=== PATIENT | female | born 1965 | race American Indian/Alaskan Native ===

== ENCOUNTER 2016-08-07 10:07 | Emergency (ER) | payer OTHER ==
[2016-08-07 11:21] VITALS: BMI 44.6
[2016-08-07 11:22] VITALS: PULSE 77; RESP 19
--- NOTE | 2016-08-07 11:36 | ED PDOC ---
HPI: SOB/CHF/COPD Time Seen by Provider: 08/07/16 11:16 Chief Complaint (Nursing): Shortness Of Breath Chief Complaint (Provider): Shortness Of Breath History Per: Patient History/Exam Limitations: no limitations Onset/Duration Of Symptoms: Days Current Symptoms Are (Timing): Still Present Initiating Event: Exposure To Mold Quality: Tightness Current Respiratory Medications: See Home Med List Severity: Mild Additional Complaint(s): Patient is a 50 year old female who presents to ED foe valuation of SOB with fever intermittent for a couple of weeks. Patient reports initially she returned home from vacation to find a leak in her ceiling that resulted in mold. States at that time she developed fever of 104 and SOB which resolved until yesterday. Patient states that she developed another leak a few days ago and the sick feeling returned. Denies chest pain, palpations or back pain. PMD: [facility] Past Medical History Reviewed: Historical Data, Nursing Documentation, Vital Signs Vital Signs: Last Vital Signs Temp 98.1 F 08/07/16 13:51 Pulse 77 08/07/16 11:21 Resp 19 08/07/16 13:51 BP 132/76 08/07/16 13:51 Pulse Ox 100 08/07/16 13:51 - Medical History PMH: Arthritis, Asthma, CAD, Diabetes, Deep Vein Thrombosis (left leg), HTN, Kidney Stones, Rheumatoid Arthritis - Surgical History Surgical History: Cholecystectomy, - Family History Family History: States: Unknown Family Hx - Living Arrangements Living Arrangements: With Family - Home Medications Home Medications: Ambulatory Orders Medication Instructions Recorded Benazepril HCl [Benazepril] 20 mg PO DAILY 02/25/15 Fluticasone Propionate [Flovent 0.22 mg IH Q4 02/25/15 Hfa] Gabapentin [Neurontin] 600 mg PO BID 02/25/15 diltiaZEM [Cardizem] 60 mg PO DAILY 02/25/15 Albuterol HFA [Ventolin HFA 90 2 puff IH Q4H #1 puff 02/26/15 mcg/actuation (8 g)] Ibuprofen [Motrin] 600 mg PO TID 7 Days 07/25/15 Tamsulosin [Flomax] 0.4 mg PO DAILY PRN #6 cap 07/25/15 - Allergies Allergies/Adverse Reactions: Allergies Allergy/AdvReac Type Severity Reaction Status Date / Time No Known Allergies Allergy Verified 02/25/15 20:10 Curb-65 Severity Score - CURB-65 Severity Score Confusion: No Bun >19mg/dl (>7mmol/L): No Respiratory Rate greater than/equal to 30: No Systolic BP <90 or Diastolic BP less than/equal 60mmHg: No Age >64: No Curb-65 Score: 0 Percentage 30-day mortality: 0.6% Wells Criteria for PE - Wells Criteria for Pulmonary Embolism Clinical Signs and Symptoms of DVT: No P.E is #1 Diagnosis, or Equally Likely: No Heart Rate >100: No Immobilization at least 3 days;Surgery previous 4 weeks: No Previous, objectively diagnosed PE or DVT: Yes Hemoptysis: No Malignancy w/treatment within 6 months, or palliative: No Total Score: 1.5 Review of Systems ROS Statement: Except As Marked, All Systems Reviewed And Found Negative Constitutional: Positive for: Fever, Chills ENT: Positive for: Throat Pain. Negative for: Ear Pain Cardiovascular: Negative for: Chest Pain Respiratory: Positive for: Cough, Shortness of Breath. Negative for: Sputum Musculoskeletal: Negative for: Neck Pain Skin: Negative for: Rash Physical Exam - Reviewed Nursing Documentation Reviewed: Yes Vital Signs Reviewed: Yes - Physical Exam Appears: Positive for: Well, Non-toxic, No Acute Distress (Spekaing full sentences) Skin: Positive for: Normal Color, Warm. Negative for: Rash Eye Exam: Positive for: Normal appearance ENT: Negative for: Nasal Congestion, Pharyngeal Erythema, Tonsillar Exudate Neck: Positive for: Normal, Painless ROM, Supple Cardiovascular/Chest: Positive for: Regular Rate, Rhythm. Negative for: Murmur Respiratory: Positive for: Normal Breath Sounds. Negative for: Wheezing, Respiratory Distress Extremity: Positive for: Normal ROM Neurologic/Psych: Positive for: Alert, Oriented - Laboratory Results Result Diagrams: 08/07/16 12:32 08/07/16 12:32 - ECG Interpretation Of ECG: NSR @ 67, nonspecific T wave abnormality. O2 Sat by Pulse Oximetry: 98 (RA) Pulse Ox Interpretation: Normal - Radiology X-Ray: Read By Radiologist X-Ray Interpretation: No Acute Disease Medical Decision Making Medical Decision Making: Time: 1125 Initial impression: SOB possible mold exposure Initial plan: -- EKG -- CMP -- Troponin -- CBC -- D-dimer -- PT/PTT -- Blood culture -- U/A -- CXR Scribe Attestation: Documented by Yarelis Cody acting as a scribe for Maddison Spencer MD. Scribmilena Attestation: All medical record entries made by the Scribe were at my direction and personally dictated by me. I have reviewed the chart and agree that the record accurately reflects my personal performance of the history, physical exam, medical decision making, and the department course for this patient. I have also personally directed, reviewed, and agree with the discharge instructions and disposition. Disposition - Clinical Impression Clinical Impression: Mold suspected exposure - Patient ED Disposition Is Patient to be Admitted: No - Disposition Disposition: Routine/Home Disposition Time: 13:44 Condition: STABLE Additional Instructions: FOLLOW-UP WITH YOUR PMD WITHIN 2 DAYS FOR REEVALUATION. Instructions: How Your Lungs Work (ED)
[2016-08-07 11:56] LABS: RBC URINE 204 /hpf (0-3); URINE BILIRUBIN NEGATIVE (NEGATIVE); URINE BLOOD LARGE (NEGATIVE); URINE COLOR YELLOW (YELLOW); URINE GLUCOSE (UA) NEG (Normal); URINE KETONE TRACE mg/dL (NEGATIVE); URINE LEUKOCYTE ESTERASE NEG Leu/uL (Negative); URINE PROTEIN 30 mg/dL (NEGATIVE); URINE UROBILINOGEN 0.2-1.0 mg/dL (0.2-1.0); WBC URINE 1 /hpf (0-5)
[2016-08-07 12:53] LABS: ALB/GLOB RATIO 1.2 (1.0-2.1); ALKALINE PHOSPHATASE 112 U/L (38-126); ALT/SGPT 22 U/L (9-52); AST/SGOT 23 U/L (14-36); BILIRUBIN,TOTAL 0.4 mg/dl (0.2-1.3); BLOOD UREA NITROGEN 16 mg/dl (7-17); CALCIUM 9.7 mg/dL (8.4-10.2); CARBON DIOXIDE 26 mmol/L (22-30); CHLORIDE 104 mmol/L (98-107); GFR AFRICAN-AMERICAN > 60; GLUCOSE,RANDOM 91 mg/dL (65-105); SODIUM 143 mmol/l (132-148); TOTAL PROTEIN 8.7 G/DL (6.3-8.2)
[2016-08-07 12:59] LABS: PARTIAL THROMBOPLASTIN TIME 25.2 SECONDS (23.3-32.5)
[2016-08-07 13:06] LABS: BASO % 0.6 % (0.0-2.0); EOS # 0.1 K/uL (0.0-0.7); EOS % 0.8 % (0.0-4.0); HEMATOCRIT 36.9 % (34.0-47.0); LYMPH # 3.5 K/uL (1.0-4.3); LYMPH % 41.5 % (20.0-40.0); MEAN CORPUSCULAR HEMOGLOBIN 25.7 pg (27.0-31.0); MEAN CORPUSCULAR HGB CONC 32.5 g/dL (33.0-37.0); MEAN PLATELET VOLUME 7.8 fl (7.2-11.7); MONO # 0.5 K/uL (0.0-0.8); MONO % 5.8 % (0.0-10.0); NEUT # 4.3 K/uL (1.8-7.0); NEUT % 51.3 % (50.0-75.0); NRBC % 0.1 % (0.0-0.0); RED CELL DISTRIBUTION WIDTH 15.2 % (11.5-14.5); WHITE BLOOD COUNT 8.3 K/uL (4.8-10.8)
--- NOTE | 2016-08-07 13:23 | RAD ---
HISTORY: Cough COMPARISON: 02/25/2015 TECHNIQUE: Chest PA and lateral FINDINGS: LUNGS: No active pulmonary disease. PLEURA: No significant pleural effusion identified. No pneumothorax apparent. CARDIOVASCULAR: Normal. OSSEOUS STRUCTURES: No significant abnormalities. VISUALIZED UPPER ABDOMEN: Normal. OTHER FINDINGS: None. IMPRESSION: No active disease.
[2016-08-07 13:52] VITALS: BP 132/76; TEMP 98.1
[2016-08-08 08:57] VITALS: O2SAT 98
--- NOTE | 2016-08-08 13:38 | CARD ---
APPROVED REPORT EKG Measurement Heart [id number] <Conclusion> Normal sinus rhythm Nonspecific T wave abnormality Abnormal ECG
== END 2016-08-07 13:57 | disposition home or self-care (01) ==
LOC: H.ER 10:07
DX: Z77.120 Contact with and (suspected) exposure to mold (toxic) (principal); M06.9 Rheumatoid arthritis, unspecified; I10 Essential (primary) hypertension; E11.9 Type 2 diabetes mellitus without complications; I25.10 Atherosclerotic heart disease of native coronary artery without angina pectoris

== ENCOUNTER 2016-10-23 12:35 | Emergency (ER) | payer MEDICARE, OTHER ==
[2016-10-23 12:36] VITALS: BMI 44.6
[2016-10-23 13:21] VITALS: BP 129/62; PULSE 68; RESP 18; TEMP 97; O2SAT 99
--- NOTE | 2016-10-23 14:19 | ED PDOC ---
HPI: Skin/Bite Injury Time Seen by Provider: 10/23/16 13:31 Chief Complaint (Nursing): Abnormal Skin Integrity Chief Complaint (Provider): Multiple painful, itchy red insect bite x 1 day, left buttocks History Per: Patient History/Exam Limitations: no limitations Onset/Duration Of Symptoms: Days Current Symptoms Are (Timing): Still Present Quality Of Symptoms: Painful, Itching Severity: Mild Additional Complaint(s): Denies fever/chills. Pt states she is taking benadryl for a previous rash. Past Medical History Reviewed: Historical Data, Nursing Documentation, Vital Signs Vital Signs: Last Vital Signs Temp 97 F L 10/23/16 13:18 Pulse 68 10/23/16 13:18 Resp 18 10/23/16 13:18 BP 129/62 10/23/16 13:18 Pulse Ox 99 10/23/16 13:18 - Medical History PMH: Arthritis, Asthma, CAD, Diabetes, Deep Vein Thrombosis (left leg), HTN, Kidney Stones, Rheumatoid Arthritis Other PMH: Pt rpeorts only taking medications for HTN - Surgical History Surgical History: Cholecystectomy, - Family History Family History: States: Unknown Family Hx - Living Arrangements Living Arrangements: With Family - Social History Current smoker - smoking cessation education provided: No Alcohol: None Drugs: Denies - Home Medications Home Medications: Ambulatory Orders Medication Instructions Recorded Benazepril HCl [Benazepril] 20 mg PO DAILY 02/25/15 Fluticasone Propionate [Flovent 0.22 mg IH Q4 02/25/15 Hfa] Gabapentin [Neurontin] 600 mg PO BID 02/25/15 diltiaZEM [Cardizem] 60 mg PO DAILY 02/25/15 Albuterol HFA [Ventolin HFA 90 2 puff IH Q4H #1 puff 02/26/15 mcg/actuation (8 g)] Ibuprofen [Motrin] 600 mg PO TID 7 Days 07/25/15 Tamsulosin [Flomax] 0.4 mg PO DAILY PRN #6 cap 07/25/15 Cephalexin [Keflex] 500 mg PO BID #20 capsule 10/23/16 - Allergies Allergies/Adverse Reactions: Allergies Allergy/AdvReac Type Severity Reaction Status Date / Time No Known Allergies Allergy Verified 02/25/15 20:10 Review of Systems ROS Statement: Except As Marked, All Systems Reviewed And Found Negative Skin: Positive for: Rash Physical Exam - Reviewed Nursing Documentation Reviewed: Yes Vital Signs Reviewed: Yes - Physical Exam Appears: Positive for: Well, Non-toxic, No Acute Distress Head Exam: Positive for: ATRAUMATIC, NORMAL INSPECTION, NORMOCEPHALIC Skin: Positive for: Warm, Rash ((+) mulitple oval shaped erythematous flat lesions on the right buttocks, (+) tenderness, (+) blanching ). Negative for: Normal Color Eye Exam: Positive for: Normal appearance ENT: Positive for: Normal ENT Inspection Neck: Positive for: Normal, Painless ROM Respiratory: Negative for: Respiratory Distress Gastrointestinal/Abdominal: Positive for: Normal Exam, Bowel Sounds Back: Positive for: Normal Inspection Extremity: Positive for: Normal ROM Neurologic/Psych: Positive for: Alert, Oriented - ECG O2 Sat by Pulse Oximetry: 99 Disposition - Clinical Impression Clinical Impression: Insect bites - Patient ED Disposition Is Patient to be Admitted: No Counseled Patient/Family Regarding: Diagnosis, Need For Followup, Rx Given - Disposition Referrals: [facility] [Outside] Disposition: Routine/Home Disposition Time: 14:19 Condition: GOOD Prescriptions: Cephalexin [Keflex] 500 mg PO BID #20 capsule Instructions: Insect Bite or Sting (ED)
== END 2016-10-23 14:50 | disposition home or self-care (01) ==
LOC: H.ER 12:35
DX: T14.8 Other injury of unspecified body region (principal); W57.XXXA Bitten or stung by nonvenomous insect and other nonvenomous arthropods, initial encounter; Y92.89 Other specified places as the place of occurrence of the external cause; E11.9 Type 2 diabetes mellitus without complications; I10 Essential (primary) hypertension; I25.10 Atherosclerotic heart disease of native coronary artery without angina pectoris; M06.9 Rheumatoid arthritis, unspecified; Z86.718 Personal history of other venous thrombosis and embolism

== ENCOUNTER 2017-07-24 09:06 | Emergency (ER) | payer MEDICARE, OTHER ==
[2017-07-24 09:18] VITALS: BMI 44.2
[2017-07-24 09:19] VITALS: TEMP 98.2; O2SAT 98
[2017-07-24] MEDS ORDERED: Sodium Chloride 0.9% 1,000 ML IV STA (10:08)
[2017-07-24 11:11] LABS: BASO # 0.1 K/uL (0.0-0.2); EOS # 0.1 K/uL (0.0-0.7); EOS % 2.1 % (0.0-4.0); LYMPH # 2.4 K/uL (1.0-4.3); LYMPH % 35.9 % (20.0-40.0); MEAN CELL VOLUME 81.9 fl (81.0-99.0); MEAN CORPUSCULAR HEMOGLOBIN 26.8 pg (27.0-31.0); MEAN CORPUSCULAR HGB CONC 32.7 g/dL (33.0-37.0); MEAN PLATELET VOLUME 7.7 fl (7.2-11.7); MONO # 0.4 K/uL (0.0-0.8); MONO % 6.2 % (0.0-10.0); NEUT # 3.7 K/uL (1.8-7.0); NEUT % 54.8 % (50.0-75.0); NRBC % 0.1 % (0.0-0.0); RBC 4.48 Mil/uL (3.80-5.20); RED CELL DISTRIBUTION WIDTH 14.1 % (11.5-14.5); WHITE BLOOD COUNT 6.8 K/uL (4.8-10.8)
[2017-07-24 11:22] LABS: ALB/GLOB RATIO 1.1 (1.0-2.1); GFR AFRICAN-AMERICAN > 60; GFR NON-AFRICAN AMERICAN > 60
[2017-07-24 11:25] LABS: ALT/SGPT 32 U/L (9-52); AST/SGOT 35 U/L (14-36); BLOOD UREA NITROGEN 17 mg/dl (7-17)
--- NOTE | 2017-07-24 11:28 | CT ---
PROCEDURE: CT scan of the abdomen and pelvis dated 07/24/2017 HISTORY: Abdominal pain. COMPARISON: Comparison made with prior CT scan abdomen pelvis 12/22/2015. TECHNIQUE: Contiguous axial images of the abdomen and pelvis performed without oral or intravenous contrast material. Additional 2 dimensional sagittal and coronal reformats generated. Radiation dose: Total exam DLP = 1033.26 mGy-cm This CT exam was performed using one or more of the following dose reduction techniques: Automated exposure control, adjustment of the mA and/or kV according to patient size, and/or use of iterative reconstruction technique. FINDINGS: LOWER THORAX: There is a minor passive/dependent type atelectasis both posterior lower lung robles. Lung robles are otherwise clear. No focal consolidation effusion or basilar pneumothorax. LIVER: Liver exhibits normal size measuring approximately 16.6 cm in CC dimension. No obvious hepatic masses or collections seen on this noncontrast exam. No gross intrahepatic biliary ductal dilatation. GALLBLADDER AND BILE DUCTS: Changes of cholecystectomy again noted the. PANCREAS: Unremarkable. No mass. No ductal dilatation. Unenhanced pancreas appears unremarkable without masses collections or calcifications. SPLEEN: Unremarkable. No splenomegaly. Again noted are at least 2 small splenules adjacent to the main body of the spleen. ADRENALS: Unremarkable. KIDNEYS AND URETERS: Re- demonstrated are multiple nonobstructing calculi both kidneys. BLADDER: Urinary appears incompletely distended which may in part account for slight thick-walled appearance. Possibility of cystitis should be excluded with urinalysis followup. REPRODUCTIVE: The uterus and adnexal structures appear grossly unremarkable. APPENDIX: Normal-appearing appendix best seen on axial image number [id number] coronal image number [id number]. . . BOWEL: Evaluation of the bowel is limited due to the lack of oral contrast material. Stomach is incompletely distended which in part accounts for thick-walled appearance. Visualized loops of small bowel exhibit normal contour and caliber. No evidence of acute mechanical small bowel obstruction. Stool and air seen throughout the large bowel. Questionable prominent diverticulum in the cecal region. No evidence of abnormal mural wall thickening. PERITONEUM: Unremarkable. No fluid collection. No free air. Tiny fat containing umbilical hernia. LYMPH NODES: There are multiple small scattered mesenteric lymph nodes. VASCULATURE: No evidence of abdominal aortic or iliac artery aneurysms. BONES: No fracture or destructive lesion. Minor multilevel degenerative spondylosis of the lower thoracic and lumbar spine OTHER FINDINGS: The re- demonstrated is a metallic surgical clip within the left pelvis likely related to prior cholecystectomy surgery. IMPRESSION: Multiple nonobstructing bilateral renal calculi again noted. No evidence of hydronephrosis. Changes of cholecystectomy again seen. No evidence of acute appendicitis.
[2017-07-24 11:31] LABS: SQUAMOUS EPITHIAL 1 /hpf (0-5); URINE BACTERIA RARE (<OCC); URINE BILIRUBIN NEGATIVE (NEGATIVE); URINE BLOOD NEGATIVE (NEGATIVE); URINE CLARITY CLEAR (Clear); URINE COLOR YELLOW (YELLOW); URINE GLUCOSE (UA) NEG (Normal); URINE LEUKOCYTE ESTERASE NEG Leu/uL (Negative); URINE PROTEIN NEGATIVE (NEGATIVE); URINE UROBILINOGEN 0.2-1.0 mg/dL (0.2-1.0)
--- NOTE | 2017-07-24 12:02 | ED PDOC ---
HPI: Female Pain Time Seen by Provider: 07/24/17 09:10 Chief Complaint (Nursing): Female Genitourinary Chief Complaint (Provider): flank pain History Per: Patient History/Exam Limitations: no limitations Onset/Duration Of Symptoms: Days (x3) Current Symptoms Are (Timing): Still Present Associated Symptoms: Urinary Symptoms (hematuria), Other (left flank and LLQ). denies: Fever, Chills, Nausea, Vomiting, Diarrhea Additional Complaint(s): Derek Restrepo is a 51 year old female, with a past medical history of kidney stones and CAD, who presents to the emergency department complaining of a worsening left flank pain that radiates to the LLQ onset for x1 week. Patient reports she had hematuria last week but it resolved after x3 days. She denies any fever, chills, nausea, vomit, or diarrhea. No further medical complaints. PMD: None provided. Past Medical History Reviewed: Historical Data, Nursing Documentation, Vital Signs Vital Signs: Last Vital Signs Temp 98.2 F 07/24/17 09:18 Pulse 72 07/24/17 09:18 Resp 16 07/24/17 09:18 BP 128/84 07/24/17 09:18 Pulse Ox 98 07/24/17 09:18 - Medical History PMH: Arthritis, Asthma, CAD, Diabetes, Deep Vein Thrombosis (left leg), HTN, Kidney Stones, Rheumatoid Arthritis - Surgical History Surgical History: Cholecystectomy, Coronary Stent, - Family History Family History: States: Unknown Family Hx - Social History Current smoker - smoking cessation education provided: No Alcohol: None Drugs: Denies - Home Medications Home Medications: Ambulatory Orders Medication Instructions Recorded Benazepril HCl [Benazepril] 20 mg PO DAILY 02/25/15 Fluticasone Propionate [Flovent 0.22 mg IH Q4 02/25/15 Hfa] Gabapentin [Neurontin] 600 mg PO BID 02/25/15 diltiaZEM [Cardizem] 60 mg PO DAILY 02/25/15 Albuterol HFA [Ventolin HFA 90 2 puff IH Q4H #1 puff 02/26/15 mcg/actuation (8 g)] Ibuprofen [Motrin] 600 mg PO TID 7 Days tab 07/25/15 Tamsulosin [Flomax] 0.4 mg PO DAILY PRN #6 cap 07/25/15 Cephalexin [Keflex] 500 mg PO BID #20 capsule 10/23/16 - Allergies Allergies/Adverse Reactions: Allergies Allergy/AdvReac Type Severity Reaction Status Date / Time No Known Allergies Allergy Verified 02/25/15 20:10 Review of Systems ROS Statement: Except As Marked, All Systems Reviewed And Found Negative Constitutional: Negative for: Fever, Chills Gastrointestinal: Positive for: Abdominal Pain (LLQ). Negative for: Nausea, Vomiting, Diarrhea Genitourinary Female: Negative for: Hematuria (resolved) Musculoskeletal: Positive for: Back Pain (left flank pain) Physical Exam - Reviewed Nursing Documentation Reviewed: Yes Vital Signs Reviewed: Yes - Physical Exam Appears: Positive for: Non-toxic, No Acute Distress Head Exam: Positive for: ATRAUMATIC, NORMOCEPHALIC Skin: Positive for: Normal Color, Warm, Dry Eye Exam: Positive for: Normal appearance Neck: Positive for: Painless ROM Cardiovascular/Chest: Positive for: Regular Rate, Rhythm. Negative for: Murmur Respiratory: Positive for: Normal Breath Sounds. Negative for: Respiratory Distress Gastrointestinal/Abdominal: Positive for: Soft, Tenderness (left flank and LLQ) Back: Negative for: Vertebral Tenderness Extremity: Positive for: Normal ROM (all extremities). Negative for: Deformity , Swelling Neurologic/Psych: Positive for: Alert, Oriented. Negative for: Motor/Sensory Deficits - Laboratory Results Result Diagrams: 07/24/17 10:57 07/24/17 10:57 - ECG O2 Sat by Pulse Oximetry: 98 (RA) Pulse Ox Interpretation: Normal Medical Decision Making Medical Decision Making: Initial Impression: Left flank pain. r/o kidney stones, UTI Initial Plan: --Abd & Pelvis w/o contrast [CT] --CMP --CBC w/ differential --Sodium Chloride 1,000 ml IV 200 mls/hr --Toradol 30 mg IV --Urine C&S --Urinalysis --Reevaluation 10:10 -UA negative for infection 11:[address] FINDINGS: LOWER THORAX: There is a minor passive/dependent type atelectasis both posterior lower lung robles. Lung robles are otherwise clear. No focal consolidation effusion or basilar pneumothorax. LIVER: Liver exhibits normal size measuring approximately 16.6 cm in CC dimension. No obvious hepatic masses or collections seen on this noncontrast exam. No gross intrahepatic biliary ductal dilatation. GALLBLADDER AND BILE DUCTS: Changes of cholecystectomy again noted the. PANCREAS: Unremarkable. No mass. No ductal dilatation. Unenhanced pancreas appears unremarkable without masses collections or calcifications. SPLEEN: Unremarkable. No splenomegaly. Again noted are at least 2 small splenules adjacent to the main body of the spleen. ADRENALS: Unremarkable. KIDNEYS AND URETERS: Re- demonstrated are multiple nonobstructing calculi both kidneys. BLADDER: Urinary appears incompletely distended which may in part account for slight thick-walled appearance. Possibility of cystitis should be excluded with urinalysis followup. REPRODUCTIVE: The uterus and adnexal structures appear grossly unremarkable. APPENDIX: Normal-appearing appendix best seen on axial image number [id number] coronal image number [id number]. . . BOWEL: Evaluation of the bowel is limited due to the lack of oral contrast material. Stomach is incompletely distended which in part accounts for thick-walled appearance. Visualized loops of small bowel exhibit normal contour and caliber. No evidence of acute mechanical small bowel obstruction. Stool and air seen throughout the large bowel. Questionable prominent diverticulum in the cecal region. No evidence of abnormal mural wall thickening. PERITONEUM: Unremarkable. No fluid collection. No free air. Tiny fat containing umbilical hernia. LYMPH NODES: There are multiple small scattered mesenteric lymph nodes. VASCULATURE: No evidence of abdominal aortic or iliac artery aneurysms. BONES: No fracture or destructive lesion. Minor multilevel degenerative spondylosis of the lower thoracic and lumbar spine OTHER FINDINGS: The re- demonstrated is a metallic surgical clip within the left pelvis likely related to prior cholecystectomy surgery. IMPRESSION: Multiple nonobstructing bilateral renal calculi again noted. No evidence of hydronephrosis. Changes of cholecystectomy again seen. No evidence of acute appendicitis. UA neg for infection on reevaluation of pt, she is made aware of CT results. she states she has no pain and feels better. instructed her to follow up her urologist and pcp. she is tolerating po and abdomen benign. pt stable for dc Scribe Attestation: Documented by Luis Felipe Linares, acting as a scribe for Felipa Bajwa MD Provider Scribe Attestation: All medical record entries made by the Scribe were at my direction and personally dictated by me. I have reviewed the chart and agree that the record accurately reflects my personal performance of the history, physical exam, medical decision making, and the department course for this patient. I have also personally directed, reviewed, and agree with the discharge instructions and disposition. Disposition - Clinical Impression Clinical Impression: Flank pain - Patient ED Disposition Is Patient to be Admitted: No Counseled Patient/Family Regarding: Studies Performed, Diagnosis, Need For Followup - Disposition Referrals: [facility] [Outside] Jean-Pierre Redmond MD [Staff Provider] - Disposition: Routine/Home Disposition Time: 11:25 Condition: IMPROVED Additional Instructions: follow up with your primary doctor/urologist in 2 days return to the ED with any worsening or concerning symptoms Instructions: Flank Pain (DC) Forms: [employer]force (Tunisian)
[2017-07-24 12:38] VITALS: BP 130/84; PULSE 75; RESP 18
== END 2017-07-24 12:57 | disposition home or self-care (01) ==
LOC: H.ER 09:06
DX: N20.0 Calculus of kidney (principal); K42.9 Umbilical hernia without obstruction or gangrene; E11.9 Type 2 diabetes mellitus without complications; I10 Essential (primary) hypertension; I25.10 Atherosclerotic heart disease of native coronary artery without angina pectoris; J45.909 Unspecified asthma, uncomplicated; M06.9 Rheumatoid arthritis, unspecified; Z86.718 Personal history of other venous thrombosis and embolism; Z90.49 Acquired absence of other specified parts of digestive tract; Z95.5 Presence of coronary angioplasty implant and graft
CPT/HCPCS: 74176; 80053; 81003; 85025; 87086; 96374; 99283; J1885; J7040